=== PATIENT | male | born 1960 | race African-American/Black ===

== ENCOUNTER 2022-06-11 10:33 | Outpatient (CLI) | payer MEDICARE, MEDICAID ==
[2022-06-11 10:56] LABS: #Basophils 0.1 thou/uL (0.0-0.2); #Eosinphils 0.1 thou/uL (0.0-0.7); #Lymphocytes 0.8 thou/uL (1.20-3.40); #Monocytes 0.3 thou/uL (0.11-0.59); #Neutrophils 3.8 thou/uL (1.40-6.50); %Basophils 1.1 % (0.0-1.0); %Lymphocytes 16.7 % (21.0-51.0); %Monocytes 5.9 % (0.0-10.0); %Neutrophils 75.2 % (42.0-75.0); Hemoglobin 10.6 g/dL (14.0-18.0); Mean Corpuscular HGB CONC 33.2 g/dL (32.0-36.0); Mean Corpuscular Hemoglobin 31.1 pg (27.0-31.0); Mean Corpuscular Volume 93.6 fl (78.0-98.0); Mean Platelet Volume 6.8 fL (7.4-10.4); Platelet Count 171 10x3/uL (130-400); RBC Distribution Width 12.3 % (11.5-14.5)
[2022-06-11 11:20] LABS: ALT (SGPT) 10 U/L (8-55); AST (SGOT) 20 U/L (5-34); Albumin 3.4 g/dL (3.5-5.0); Alkaline Phosphatase 91 U/L (40-110); Anion Gap 9 mmol/L (10-20); BUN (Urea Nitrogen) 21 mg/dL (8.4-25.7); Bilirubin, Total 0.6 mg/dL (0.2-1.2); Calc. Creatinine Clearance 0 mL/min (70-130); Calcium 9.4 mg/dL (7.8-10.44); Carbon Dioxide 28 mmol/L (22-29); Chloride 106 mmol/L (98-107); Estimated GFR 102; Globulin 3.5 g/dL (2.4-3.5); Glucose 81 mg/dL (70-105); Potassium 4.4 mmol/L (3.5-5.1); Protein, Total 6.9 g/dL (6.0-8.3); Sodium 139 mmol/L (136-145)
[2022-06-12 08:15] LABS: % Free PSA Less than 10.0 % (.); Total PSA 0.2 ng/mL (0.0-4.0)
== END 2022-06-11 10:34 | disposition home or self-care (01) ==
LOC: MADLAB 10:33
PROVIDERS: ATTEND Internal Medicine
DX: Z12.5 Encounter for screening for malignant neoplasm of prostate (principal); G40.909 Epilepsy, unspecified, not intractable, without status epilepticus; G80.9 Cerebral palsy, unspecified; I10 Essential (primary) hypertension
CPT/HCPCS: 36415; 71045; 80053; 80177; 84153; 84154; 85025

== ENCOUNTER 2023-05-19 18:20 | Emergency (ER) | payer MEDICARE, MEDICAID ==
[2023-05-19 19:34] LABS: ALT (SGPT) 40 U/L (8-55); AST (SGOT) 52 U/L (5-34); Albumin 3.2 g/dL (3.5-5.0); Alkaline Phosphatase 83 U/L (40-110); Anion Gap 16 mmol/L (10-20); BUN (Urea Nitrogen) 29 mg/dL (8.4-25.7); Bilirubin, Total 1.2 mg/dL (0.2-1.2); Calc. Creatinine Clearance 0 mL/min (70-130); Calcium 8.5 mg/dL (7.8-10.44); Carbon Dioxide 21 mmol/L (22-29); Chloride 108 mmol/L (98-107); Estimated GFR 101; Globulin 3.3 g/dL (2.4-3.5); Glucose 129 mg/dL (70-105); Magnesium 1.9 mg/dL (1.6-2.6); Potassium 3.5 mmol/L (3.5-5.1); Protein, Total 6.5 g/dL (6.0-8.3); Sodium 141 mmol/L (136-145); Troponin I Less than 0.010 ng/mL (< 0.028)
[2023-05-19 19:40] LABS: Band 23 % (5-11); Hematocrit 28.9 % (42.0-52.0); Hemoglobin 9.8 g/dL (14.0-18.0); Hypochromia SLIGHT = 6-15 cells (100X) (0-5/hpf); Lymphocytes 2 % (21-51); MDiff Complete? YES; Macrocytosis SLIGHT = 6-15 cells (100X) (0-5/hpf); Manual Diff?? YES; Mean Corpuscular HGB CONC 33.9 g/dL (32.0-36.0); Mean Corpuscular Hemoglobin 34.5 pg (27.0-31.0); Mean Corpuscular Volume 101.7 fl (78.0-98.0); Mean Platelet Volume 7.6 fL (7.4-10.4); Monocytes 1 % (0-10); Myelocyte 1 % (0-0); Neutrophil 67 % (42-75); Platelet Count 149 10x3/uL (130-400); Polychromasia SLIGHT = 2-3 cells (100X) (0-2/hpf); RBC Distribution Width 12.7 % (11.5-14.5); Red Blood Cell (RBC) Count 2.84 mill/uL (4.70-6.10); White Blood Cell (WBC) Count 2.1 10x3/uL (4.8-10.8)
[2023-05-19 19:41] LABS: Reactive Lymphocytes 6 % (0-10)
[2023-05-19 19:42] LABS: Platelet Adequacy Comment Appears Adequate
[2023-05-19] MEDS ORDERED: Sodium Chloride 0.9% 100 ML ONE (19:45)
[2023-05-19] MEDS ORDERED: Piperacillin/Tazobactam 4.5 GM VIAL ONE (19:45)
[2023-05-19 19:46] LABS: SARS-CoV-2 NAA Rapid Test Not Detected (NotDetected)
[2023-05-19 19:47] LABS: Bilirubin Small (Negative); Blood, Urine Trace (Negative); Glucose, Urine (Dipstick) Negative (Negative); Ketone, Urine Trace mg/dL (Negative); Leukocyte Negative (Negative); Nitrite Positive (Negative); Protein, Urine (Dipstick) 100 mg/dL (Neg-Trace); Specific Gravity, Urine 1.025 (1.005-1.030); pH, Urine 5.5 (5.0-9.0)
[2023-05-19 19:49] LABS: Lipase Less than 4 U/L (8-78)
[2023-05-19 19:51] LABS: Clarity Hazy (Clear)
[2023-05-19 19:52] LABS: Bacteria/HPF 2+ HPF (None Seen); CAUTI Indications for Culture Pelvic or flank pain; Mucous/LPF 2+ LPF (<2+); RBC/HPF 0-3 HPF (0-3)
[2023-05-19 19:53] LABS: Urine Culture Reflex No No
== END 2023-05-19 20:21 | disposition short-term general hospital (02) ==
LOC: MADERS 18:20
DX: K66.8 Other specified disorders of peritoneum (principal); I10 Essential (primary) hypertension; Z87.891 Personal history of nicotine dependence
CPT/HCPCS: 51702; 71045; 74177; 80053; 81001; 83605; 83690; 83735; 84484; 85025; 86850; 86900; 86901; 87040; 87077; 87086; 87186; 87804 ×2; 93005; 94760; 96365; 99285; U0002; 36415; J2543

== ENCOUNTER 2023-06-02 17:49 | Emergency (ER) | payer MEDICARE, MEDICAID ==
[2023-06-02] MEDS ORDERED: Ondansetron PF 4 MG/2 ML Vial ONE (18:36)
[2023-06-02] MEDS ORDERED: Sodium Chloride 0.9% 1,000 ML ONE (18:36)
[2023-06-02 18:44] LABS: INR-International Normal Ratio 1.1; Prothrombin Time 14.2 sec (12.0-14.7)
[2023-06-02 18:49] LABS: ALT (SGPT) 18 U/L (8-55); AST (SGOT) 22 U/L (5-34); Alkaline Phosphatase 83 U/L (40-110); Anion Gap 16 mmol/L (10-20); BUN (Urea Nitrogen) 17 mg/dL (8.4-25.7); Bilirubin, Total 0.5 mg/dL (0.2-1.2); Calc. Creatinine Clearance 0 mL/min (70-130); Calcium 8.8 mg/dL (7.8-10.44); Carbon Dioxide 25 mmol/L (22-29); Chloride 105 mmol/L (98-107); Estimated GFR 106; Globulin 2.9 g/dL (2.4-3.5); Glucose 93 mg/dL (70-105); Lipase 31 U/L (8-78); Potassium 4.5 mmol/L (3.5-5.1); Protein, Total 5.9 g/dL (6.0-8.3); Sodium 141 mmol/L (136-145)
[2023-06-02 18:53] LABS: Troponin I Less than 0.010 ng/mL (< 0.028)
[2023-06-02 19:00] LABS: #Basophils 0.1 thou/uL (0.0-0.2); #Lymphocytes 0.8 thou/uL (1.20-3.40); #Monocytes 0.6 thou/uL (0.11-0.59); #Neutrophils 4.8 thou/uL (1.40-6.50); %Basophils 1.5 % (0.0-1.0); %Eosinophils 0.4 % (0.0-10.0); %Lymphocytes 12.8 % (21.0-51.0); %Monocytes 9.7 % (0.0-10.0); %Neutrophils 75.7 % (42.0-75.0); Hematocrit 25.1 % (42.0-52.0); Hypochromia SLIGHT = 6-15 cells (100X) (0-5/hpf); MDiff Complete? YES; Macrocytosis SLIGHT = 6-15 cells (100X) (0-5/hpf); Mean Corpuscular HGB CONC 35.9 g/dL (32.0-36.0); Mean Corpuscular Hemoglobin 36.8 pg (27.0-31.0); Mean Corpuscular Volume 102.7 fl (78.0-98.0); Mean Platelet Volume 6.5 fL (7.4-10.4); Platelet Count 373 10x3/uL (130-400); Polychromasia SLIGHT = 2-3 cells (100X) (0-2/hpf); RBC Distribution Width 13.7 % (11.5-14.5); Red Blood Cell (RBC) Count 2.45 mill/uL (4.70-6.10); White Blood Cell (WBC) Count 6.3 10x3/uL (4.8-10.8)
[2023-06-02] MEDS ORDERED: Sodium Chloride 0.9% 100 ML ONE ×2 (19:15)
[2023-06-02] MEDS ORDERED: Piperacillin/Tazobactam 4.5 GM VIAL ONE (19:15)
[2023-06-02] MEDS ORDERED: Sodium Chloride 0.9% 500 ML ONE (19:15)
[2023-06-02] MEDS ORDERED: Promethazine HCl 25 MG/ML VIAL ONE (20:27)
[2023-06-02 21:14] LABS: Bilirubin Small (Negative); Blood, Urine Negative (Negative); Glucose, Urine (Dipstick) Negative (Negative); Ketone, Urine Trace mg/dL (Negative); Leukocyte Negative (Negative); Nitrite Negative (Negative); Protein, Urine (Dipstick) Trace mg/dL (Neg-Trace); Specific Gravity, Urine 1.015 (1.005-1.030)
[2023-06-02 21:18] LABS: CAUTI Indications for Culture Dysuria,urgency,freq; Calcium Oxalate Crystals 2+ HPF (None Seen); Clarity Hazy (Clear); Squamous Epithelial 0-3 HPF (0-3); WBC/HPF 0-3 HPF (0-3)
[2023-06-02 21:19] LABS: Urine Culture Reflex No No
[2023-06-02 21:24] LABS: Lactic Acid 2.2 mmol/L (0.5-2.2)
== END 2023-06-02 21:52 | disposition short-term general hospital (02) ==
LOC: MADERS 17:49
DX: A41.9 Sepsis, unspecified organism (principal); K56.41 Fecal impaction; R11.2 Nausea with vomiting, unspecified; E87.20 Acidosis, unspecified; E03.9 Hypothyroidism, unspecified; I10 Essential (primary) hypertension; Z87.891 Personal history of nicotine dependence; Z79.01 Long term (current) use of anticoagulants
CPT/HCPCS: 36415; 43753; 51702; 71045; 74177; 80053; 81001; 83605; 83690; 84484; 85025; 85610; 85730; 87040; 93005; 96361; 96365; 96375; J2405; J2543; J2550; J3490; J7030; J7050

== ENCOUNTER 2023-07-22 12:23 | Emergency (ER) | payer MEDICARE, OTHER ==
[~2023-07-22 12:23] MED LIST: Iopamidol 370 76% 100 ML VIAL ONE
[2023-07-22 13:55] LABS: SARS-CoV-2 NAA Rapid Test Not Detected (NotDetected)
[2023-07-22 14:16] LABS: #Basophils 0.1 thou/uL (0.0-0.2); #Lymphocytes 0.7 thou/uL (1.20-3.40); #Monocytes 0.4 thou/uL (0.11-0.59); %Basophils 1.2 % (0.0-1.0); %Eosinophils 0.8 % (0.0-10.0); %Lymphocytes 13.3 % (21.0-51.0); %Monocytes 7.6 % (0.0-10.0); Hematocrit 32.9 % (42.0-52.0); Hemoglobin 10.8 g/dL (14.0-18.0); Mean Corpuscular HGB CONC 32.8 g/dL (32.0-36.0); Mean Corpuscular Hemoglobin 31.9 pg (27.0-31.0); Mean Corpuscular Volume 97.4 fl (78.0-98.0); Mean Platelet Volume 7.3 fL (7.4-10.4); Platelet Count 154 10x3/uL (130-400); RBC Distribution Width 14.3 % (11.5-14.5); Red Blood Cell (RBC) Count 3.38 mill/uL (4.70-6.10); White Blood Cell (WBC) Count 5.2 10x3/uL (4.8-10.8)
[2023-07-22 14:35] LABS: ALT (SGPT) 22 U/L (8-55); AST (SGOT) 22 U/L (5-34); Albumin 2.6 g/dL (3.5-5.0); Alkaline Phosphatase 87 U/L (40-110); Anion Gap 11 mmol/L (10-20); BUN (Urea Nitrogen) 16 mg/dL (8.4-25.7); Bilirubin, Total 0.3 mg/dL (0.2-1.2); Calc. Creatinine Clearance 0 mL/min (70-130); Calcium 8.1 mg/dL (7.8-10.44); Carbon Dioxide 23 mmol/L (22-29); Chloride 110 mmol/L (98-107); Estimated GFR 111; Globulin 3.2 g/dL (2.4-3.5); Glucose 98 mg/dL (70-105); Magnesium 1.5 mg/dL (1.6-2.6); Potassium 3.6 mmol/L (3.5-5.1); Protein, Total 5.8 g/dL (6.0-8.3); Sodium 140 mmol/L (136-145); Troponin I Less than 0.010 ng/mL (< 0.028)
[2023-07-22] MEDS ORDERED: Sodium Chloride 0.9% 100 ML ONE (15:33)
[2023-07-22] MEDS ORDERED: Piperacillin/Tazobactam 4.5 GM VIAL ONE (15:33)
[2023-07-22] MEDS ORDERED: Magnesium Oxide 400 MG TAB ONE (15:33)
[2023-07-22 18:32] LABS: Bilirubin Negative (Negative); Blood, Urine Negative (Negative); Glucose, Urine (Dipstick) Negative (Negative); Ketone, Urine Negative (Negative); Leukocyte Trace (Negative); Nitrite Negative (Negative); Protein, Urine (Dipstick) Negative (Neg-Trace); Specific Gravity, Urine 1.015 (1.005-1.030); Urobilinogen 0.2 mg/dL (Less than 2)
[2023-07-22 18:38] LABS: Clarity Clear (Clear)
[2023-07-22 18:51] LABS: Bacteria/HPF Rare-Few HPF (None Seen); CAUTI Indications for Culture Pelvic or flank pain; Mucous/LPF Few LPF (<2+); RBC/HPF 0-3 HPF (0-3); Squamous Epithelial 0-3 HPF (0-3); Urine Culture Reflex No No
== END 2023-07-22 19:48 | disposition short-term general hospital (02) ==
LOC: MADERS 12:23
DX: E86.0 Dehydration (principal); K52.89 Other specified noninfective gastroenteritis and colitis; R55 Syncope and collapse; E03.9 Hypothyroidism, unspecified; I10 Essential (primary) hypertension; Z87.891 Personal history of nicotine dependence; Z79.899 Other long term (current) drug therapy
CPT/HCPCS: 71045; 74177; 80053; 81001; 83605; 83735; 83880; 84484; 85025; 87040; 87086; 87804 ×2; 93005; U0002; 36415; 82274; 96361; 96365; J2543; J3490; Q9967

== ENCOUNTER 2024-07-20 14:17 | Emergency (ER) | payer MEDICARE, MEDICAID ==
[2024-07-20] MEDS ORDERED: Morphine 2 MG/ML VIAL ONE (15:11)
[2024-07-20] MEDS ORDERED: Sodium Chloride 0.9% 1,000 ML ONE (15:11)
[2024-07-20 15:20] LABS: #Basophils 0.1 thou/uL (0.0-0.2); #Eosinophils 0.2 thou/uL (0.0-0.7); #Lymphocytes 1.2 thou/uL (1.20-3.40); #Monocytes 0.7 thou/uL (0.11-0.59); #Neutrophils 6.1 thou/uL (1.40-6.50); %Basophils 1.4 % (0.0-1.0); %Eosinophils 2.2 % (0.0-10.0); %Lymphocytes 14.9 % (21.0-51.0); %Monocytes 8.4 % (0.0-10.0); %Neutrophils 73.1 % (42.0-75.0); Hematocrit 39.4 % (42.0-52.0); Mean Corpuscular Hemoglobin 31.3 pg (27.0-31.0); Mean Corpuscular Volume 94.9 fl (78.0-98.0); Mean Platelet Volume 7.6 fL (7.4-10.4); Platelet Count 192 10x3/uL (130-400); RBC Distribution Width 11.9 % (11.5-14.5); Red Blood Cell (RBC) Count 4.15 mill/uL (4.70-6.10); White Blood Cell (WBC) Count 8.3 10x3/uL (4.8-10.8)
[2024-07-20 15:35] LABS: ALT (SGPT) 33 U/L (8-55); AST (SGOT) 25 U/L (5-34); Albumin 2.8 g/dL (3.4-4.8); Alkaline Phosphatase 109 U/L (40-110); Anion Gap 13 mmol/L (10-20); BUN (Urea Nitrogen) 16 mg/dL (8.4-25.7); Bilirubin, Total 0.6 mg/dL (0.2-1.2); Calc. Creatinine Clearance 0 mL/min (70-130); Calcium 8.9 mg/dL (7.8-10.44); Carbon Dioxide 24 mmol/L (23-31); Chloride 110 mmol/L (98-107); Estimated GFR 101; Globulin 3.7 g/dL (2.4-3.5); Glucose 102 mg/dL (80-115); Lipase 43 U/L (8-78); Protein, Total 6.5 g/dL (5.8-8.1); Sodium 143 mmol/L (136-145)
[2024-07-20 15:36] LABS: Troponin I Less than 0.010 ng/mL (< 0.028)
[2024-07-20] MEDS ORDERED: diphenhydrAMINE 50 MG/ML VIAL ONE (15:52)
[2024-07-20] MEDS ORDERED: Dexamethasone 10 MG/ML VIAL ONE (15:52)
== END 2024-07-20 16:56 ==
LOC: MADERS 14:17
DX: R10.9 Unspecified abdominal pain (principal); K21.9 Gastro-esophageal reflux disease without esophagitis; E78.00 Pure hypercholesterolemia, unspecified; I10 Essential (primary) hypertension; Z87.891 Personal history of nicotine dependence; Z79.899 Other long term (current) drug therapy
CPT/HCPCS: 74177; 80053; 83605; 83690; 84484; 85025; 93005; 96374; 96375; 99284; J1100; J1200; J2272; J7030; Q9967

== ENCOUNTER 2025-03-11 04:18 | Outpatient (CLI) | payer MEDICARE, MEDICAID ==
[2025-03-11 06:21] LABS: #Basophils 0.1 thou/uL (0.0-0.2); #Eosinophils 0.1 thou/uL (0.0-0.7); #Lymphocytes 1.6 thou/uL (1.20-3.40); #Monocytes 0.5 thou/uL (0.11-0.59); #Neutrophils 3.6 thou/uL (1.40-6.50); %Basophils 1.2 % (0.0-1.0); %Eosinophils 2.5 % (0.0-10.0); %Lymphocytes 26.3 % (21.0-51.0); %Monocytes 8.8 % (0.0-10.0); %Neutrophils 61.3 % (42.0-75.0); Hematocrit 38.8 % (42.0-52.0); Hemoglobin 13.3 g/dL (14.0-18.0); Mean Corpuscular Hemoglobin 31.7 pg (27.0-31.0); Mean Corpuscular Volume 92.4 fl (78.0-98.0); Platelet Count 175 10x3/uL (130-400); Red Blood Cell (RBC) Count 4.20 mill/uL (4.70-6.10); White Blood Cell (WBC) Count 5.9 10x3/uL (4.8-10.8)
[2025-03-11 06:27] LABS: Glucose, Urine (Dipstick) Negative (Negative); Leukocyte Negative (Negative); Protein, Urine (Dipstick) Negative (Neg-Trace); Specific Gravity, Urine 1.025 (1.005-1.030)
[2025-03-11 06:31] LABS: Bacteria/HPF Rare-Few HPF (None Seen); RBC/HPF None Seen HPF (0-3)
[2025-03-11 06:37] LABS: ALT (SGPT) 16 U/L (Less than 45); AST (SGOT) 21 U/L (11-34); Albumin 2.8 g/dL (3.1-4.5); Alkaline Phosphatase 100 U/L (40-110); Anion Gap 12 mmol/L (10-20); BUN (Urea Nitrogen) 14 mg/dL (8.4-25.7); Bilirubin, Total 0.4 mg/dL (0.3-1.2); Calc. Creatinine Clearance 0 mL/min (70-130); Calcium 8.6 mg/dL (7.8-10.44); Carbon Dioxide 22 mmol/L (23-31); Chloride 113 mmol/L (98-107); Globulin 2.7 g/dL (2.4-3.5); Glucose 97 mg/dL (80-115); Potassium 4.1 mmol/L (3.5-5.1); Sodium 143 mmol/L (136-145)
== END 2025-03-11 04:19 | disposition home or self-care (01) ==
LOC: MADLAB 04:18
PROVIDERS: ATTEND Family Medicine
DX: N40.1 Benign prostatic hyperplasia with lower urinary tract symptoms (principal); E03.9 Hypothyroidism, unspecified; E46 Unspecified protein-calorie malnutrition; K57.92 Diverticulitis of intestine, part unspecified, without perforation or abscess without bleeding; G80.9 Cerebral palsy, unspecified
CPT/HCPCS: 80053; 81001; 84443; 85025; 87086